=== PATIENT | male | born 1945 | race Caucasian/White ===

== ENCOUNTER 2019-02-25 14:04 | Outpatient (CLI) | payer MEDICARE ==
[2019-02-25 15:17] LABS: BASOPHILS % (AUTO) 0 % (0-1); EOSINOPHILS # (AUTO) 0.01 x10^3/uL (0-0.4); EOSINOPHILS % (AUTO) 0 % (1-7); LYMPHOCYTES # (AUTO) 0.62 x10^3/uL (1-3.4); LYMPHOCYTES % (AUTO) 6 % (22-44); MD NO; MEAN CORPUSCULAR HEMOGLOBIN 29.9 pg (27.5-34.5); MEAN CORPUSCULAR HGB CONC 32.7 g/dL (33.2-36.2); MEAN CORPUSCULAR VOLUME 91.6 fL (81-97); MEAN PLATELET VOLUME 7.1 fL (7.4-10.4); MONOCYTES # (AUTO) 0.32 x10^3/uL (0.2-0.8); MONOCYTES % (AUTO) 3 % (2-9); NEUTROPHILS # (AUTO) 10.11 x10^3/uL (1.8-6.8); NEUTROPHILS % (AUTO) 91 % (42-75); PLATELET COUNT 272 x10^3/uL (130-400); RED BLOOD COUNT 5.29 x10^6/uL (4.38-5.82); RED CELL DISTRIBUTION WIDTH 13.6 % (9.4-14.8)
[2019-02-25 15:21] LABS: HCT (SEDRATE) 48.4 % (39.2-51.8)
[2019-02-25 15:26] LABS: C-REACTIVE PROTEIN, QUANT 0.37 mg/dL (0.02-0.49)
== END 2019-02-25 23:59 | disposition home or self-care (01) ==
LOC: RAD 14:04
PROVIDERS: ATTEND Physician Assistant Surgical
DX: M16.11 Unilateral primary osteoarthritis, right hip (principal); M25.451 Effusion, right hip
CPT/HCPCS: 36415; 84550; 85025; 85651; 86140

== ENCOUNTER 2020-09-17 11:47 | Day surgery (SDC) | payer MEDICARE ==
[~2020-09-17] VITALS: Ht 177.8 cm; Wt 73.4 kg
[2020-09-17 12:27] VITALS: BP 156/69
[2020-09-17] MEDS ORDERED: FENTANYL PF 100 MCG/2ML ONE (13:44)
[2020-09-17] MEDS ORDERED: MIDAZOLAM 1 MG/ML, 5ML ONE (13:44)
== END 2020-09-17 16:55 | disposition home or self-care (01) ==
LOC: OUT 11:47 → EDSTATUS 13:15 → OUT 16:55
PROVIDERS: ATTEND Neurological Surgery
DX: M47.11 Other spondylosis with myelopathy, occipito-atlanto-axial region (principal); M43.12 Spondylolisthesis, cervical region; M48.02 Spinal stenosis, cervical region; M43.22 Fusion of spine, cervical region; M25.78 Osteophyte, vertebrae; M47.14 Other spondylosis with myelopathy, thoracic region; M51.04 Intervertebral disc disorders with myelopathy, thoracic region; M48.04 Spinal stenosis, thoracic region; Z79.899 Other long term (current) drug therapy; Z88.8 Allergy status to other drugs, medicaments and biological substances; Z98.890 Other specified postprocedural states; Z82.49 Family history of ischemic heart disease and other diseases of the circulatory system; Z80.9 Family history of malignant neoplasm, unspecified
CPT/HCPCS: 72141; 72146; 99156; 99157; J2250; J3010